=== PATIENT | male | born 1990 | race Caucasian/White ===

== ENCOUNTER 2019-05-27 20:05 | Emergency (ER) | payer MEDICAID ==
[2019-05-27] MEDS ORDERED: KETOROLAC 60 MG/2 ML VIAL IM ONE (23:07)
== END 2019-05-27 23:46 | disposition home or self-care (01) ==
LOC: MED 20:05
DX: M43.6 Torticollis (principal); K29.70 Gastritis, unspecified, without bleeding; R05 Cough; J45.909 Unspecified asthma, uncomplicated
CPT/HCPCS: 72040; 99283; J1885

== ENCOUNTER 2019-11-16 12:29 | Emergency (ER) | payer MEDICAID, SELFPAY ==
[~2019-11-16] VITALS: Ht 180.3 cm; Wt 99.8 kg
[2019-11-16 12:49] VITALS: BP 122/65
[2019-11-16 14:06] VITALS: BP 124/65
== END 2019-11-16 14:06 | disposition home or self-care (01) ==
LOC: MED 12:29 → EEVIPCON 12:29 → MED 14:06
DX: R05 Cough (principal); J45.909 Unspecified asthma, uncomplicated; K29.70 Gastritis, unspecified, without bleeding; L03.90 Cellulitis, unspecified
CPT/HCPCS: 71045; 99283; Q0092

== ENCOUNTER 2020-04-30 12:11 | Emergency (ER) | payer MEDICAID, SELFPAY ==
[~2020-04-30] VITALS: Ht 180.3 cm; Wt 95.3 kg
[2020-04-30 12:16] VITALS: BP 131/89
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
--- NOTE | 2020-04-30 13:08 | NUR ---
Dr. Ryan is evaluating the patient at bedside.
[2020-04-30 13:17] VITALS: BP 125/87
== END 2020-04-30 13:18 | disposition home or self-care (01) ==
LOC: MED 12:11
DX: M79.641 Pain in right hand (principal); J45.909 Unspecified asthma, uncomplicated; V29.9XXA Motorcycle rider (driver) (passenger) injured in unspecified traffic accident, initial encounter; Y93.89 Activity, other specified; Y92.89 Other specified places as the place of occurrence of the external cause; Y99.8 Other external cause status
CPT/HCPCS: 99282